=== PATIENT | male | born 1985 | race Caucasian/White ===

== ENCOUNTER 2016-12-12 14:50 | Emergency (ER) | payer BC ==
[2016-12-12 14:58] VITALS: BP 117/83
--- NOTE | 2016-12-12 15:20 | UC ---
Rainer Gaxiola Benjamin, scribed for Everett Moore MD on 12/12/16 at 1510 . Skin Complaint HPI - HPI Summary HPI Summary: 31yo male presents with left 5th toe redness, swelling with mild bleeding. Toe s skin is flaky. Pt has been having symptoms for a few weeks. Also some red rash on the top of left foot. No foot or toe injury. No significant PMHx or FHx. - History of Current Complaint Chief Complaint: UCWounds Time Seen by Provider: 12/12/16 15:05 Stated Complaint: RED AREA ON FOOT Hx Obtained From: Patient Onset/Duration: Gradual Onset - few weeks ago, Lasting Weeks, Still Present Onset Severity: Mild Current Severity: Mild Pain Intensity: 0 Pain Scale Used: 0-10 Numeric Location: Foot (Left) - 5th toe on the left foot Character: Swelling, Redness Aggravating: Nothing Alleviating: Nothing Associated Signs & Symptoms: Positive: Negative - Allergy/Home Medications Allergies/Adverse Reactions: Allergies Allergy/AdvReac Type Severity Reaction Status Date / Time No Known Allergies Allergy Verified 12/12/16 14:58 Home Medications: Home Medications Ibuprofen TAB* [Advil TAB*] 600 mg PO PRN 12/12/16 [History] Review of Systems Constitutional: Negative Skin: Rash - red rash, flaky skin of the 5th toe of the left foot. Eyes: Negative ENT: Negative Respiratory: Negative Cardiovascular: Negative Gastrointestinal: Negative Genitourinary: Negative Motor: Negative Neurovascular: Negative Musculoskeletal: Negative Neurological: Negative Psychological: Negative All Other Systems Reviewed And Are Negative: Yes PMH/Surg Hx/FS Hx/Imm Hx Previously Healthy: Yes - Surgical History Surgical History: None - Family History Known Family History: Positive: None Negative: Cardiac Disease, Hypertension, Diabetes - Social History Occupation: Employed Full-time Lives: With Family Alcohol Use: Occasionally Substance Use Type: None Smoking Status (MU): Former Smoker When Did the Patient Quit Smoking/Using Tobacco: 10 YRS AGO Physical Exam Triage Information Reviewed: Yes Appearance: Well-Appearing, No Pain Distress, Well-Nourished, Obese Vital Signs: Initial Vital Signs Temp 98.1 F 12/12/16 14:55 Pulse 80 12/12/16 14:55 Resp 16 12/12/16 14:55 BP 117/83 12/12/16 14:55 Pulse Ox 100 12/12/16 14:55 Eyes: Positive: Conjunctiva Clear ENT: Positive: Normal ENT inspection Respiratory: Positive: Lungs clear Cardiovascular: Positive: RRR Musculoskeletal: Positive: Strength Intact, ROM Intact Neurological: Positive: Alert, Muscle Tone Normal Skin: Positive: Other - the left little toe has scaly, reddish, lichen appearance to the skin. The nail is wnl. Appearance consistent with tinea pedis. Course/Dx - Course Course Of Treatment: Reviewed pt's medications list. He is going to use over the counter antifungal cream twice a day until a week after the rash is gone on the toe. There is no evidence of cellulitis or secondary infection at this point. Referral to primary care made. - Diagnoses Provider Diagnoses: tinea pedis Discharge - Discharge Plan Condition: Good Disposition: HOME Patient Education Materials: Athlete's Foot (ED) Referrals: [facility] [Outside] No Primary Care Phys,NOPCP [Primary Care Provider] - Additional Instructions: apply antifungal cream or spray twice a day to the area of your foot affected. The documentation as recorded by the Rainer roger Benjamin accurately reflects the service I personally performed and the decisions made by , Everett Moore MD.
== END 2016-12-12 15:20 | disposition home or self-care (01) ==
LOC: UCEAST 14:50
DX: B35.3 Tinea pedis (principal); Z87.891 Personal history of nicotine dependence
CPT/HCPCS: 99211; G0463

== ENCOUNTER 2017-07-17 08:45 | Emergency (ER) | payer BC ==
--- NOTE | 2017-07-17 10:21 | UC ---
Respiratory Complaint HPI - HPI Summary HPI Summary: 1 WEEK OF PRODUCTIVE COUGH, CONGESTION, ST, ACHINESS. HAS SLIGHT SUAREZ AND FEELS SOB AT TIMES. YESTERDAY HAD TEMP 100 SO DECIDED TO COME IN FOR EVAL. - History of Current Complaint Chief Complaint: UCRespiratory Stated Complaint: COUGH, AND CHILLS Time Seen by Provider: 07/17/17 09:54 Hx Obtained From: Patient, Family/[employer] - Onset/Duration: Gradual Onset, Lasting Days, Still Present Timing: Constant Severity Initially: Moderate Severity Currently: Moderate Pain Intensity: 6 Pain Scale Used: 0-10 Numeric Character: Cough: Productive Aggravating Factors: Deep Breaths Alleviating Factors: Nothing Associated Signs And Symptoms: Positive: Dyspnea, Fever, URI, Nasal Congestion - Allergies/Home Medications Allergies/Adverse Reactions: Allergies Allergy/AdvReac Type Severity Reaction Status Date / Time No Known Allergies Allergy Verified 12/12/16 14:58 PMH/Surg Hx/FS Hx/Imm Hx Previously Healthy: Yes - Surgical History Surgical History: None - Family History Known Family History: Positive: None Negative: Cardiac Disease, Hypertension, Diabetes - Social History Alcohol Use: Rare Substance Use Type: None Smoking Status (MU): Former Smoker When Did the Patient Quit Smoking/Using Tobacco: 10 YRS AGO Review of Systems Constitutional: Fever, Fatigue ENT: Sore Throat, Nasal Discharge Respiratory: Shortness Of Breath, Cough Cardiovascular: Negative Gastrointestinal: Negative Musculoskeletal: Myalgia Neurological: Headache All Other Systems Reviewed And Are Negative: Yes Physical Exam Triage Information Reviewed: Yes Appearance: Well-Appearing, No Pain Distress, Well-Nourished Vital Signs: Initial Vital Signs Temp 98.2 F 07/17/17 08:53 Pulse 91 07/17/17 08:53 Resp 18 07/17/17 08:53 BP 126/82 07/17/17 08:53 Pulse Ox 98 07/17/17 08:53 Vital Signs Reviewed: Yes Eyes: Positive: Conjunctiva Clear ENT: Positive: Hearing grossly normal, Pharynx normal, TMs normal Neck: Positive: Supple, Nontender, No Lymphadenopathy Respiratory Exam: Normal Cardiovascular Exam: Normal Abdomen Description: Positive: Soft Musculoskeletal: Positive: No Edema Neurological: Positive: Alert Psychological: Positive: Age Appropriate Behavior Skin: Negative: rashes UC Diagnostic Evaluation - Laboratory O2 Sat by Pulse Oximetry: 98 Diagnostic Studies Comment: INFLUENZA NEG - Radiology Xray Interpretation: No Acute Changes - CXR Radiology Interpretation Completed By: Radiologist Respiratory Course/Dx - Differential Dx/Diagnosis Provider Diagnoses: ACUTE URI Discharge - Discharge Plan Condition: Stable Disposition: HOME Patient Education Materials: Upper Respiratory Infection (ED) Forms: *Work Release Referrals: [facility] [Provider Group] - If Needed Additional Instructions: FLU SWAB NEGATIVE. YOUR SYMPTOMS ARE LIKELY VIRALLY MEDIATED AND SHOULD RESOLVE ON THEIR OWN WITH TIME. REST, HYDRATE, OTC MEDS NEEDED. SEEK FOLLOW-UP IF YOU ARE NOT IMPROVING OVER THE NEXT 1-2 WEEKS.
--- NOTE | 2017-07-17 10:43 | RAD ---
HISTORY: Cough, shortness of breath COMPARISONS: None VIEWS: 4: Frontal dual-energy and lateral views of the chest. FINDINGS: CARDIOMEDIASTINAL SILHOUETTE: The cardiomediastinal silhouette is normal. CLAIRE: The claire are normal. PLEURA: The costophrenic angles are sharp. No pleural abnormalities are noted. LUNG PARENCHYMA: The lungs are clear. ABDOMEN: The upper abdomen is clear. There is no subphrenic gas. BONES AND SOFT TISSUES: No bone or soft tissue abnormalities are noted. OTHER: None. IMPRESSION: NO ACTIVE CARDIOPULMONARY DISEASE.
[2017-07-17 10:52] VITALS: BP 136/80
== END 2017-07-17 10:48 | disposition home or self-care (01) ==
LOC: UCEAST 08:45
DX: J06.9 Acute upper respiratory infection, unspecified (principal); Z87.891 Personal history of nicotine dependence
CPT/HCPCS: 71046; 87502; 99212; G0463

== ENCOUNTER 2017-08-22 12:45 | Emergency (ER) | payer BC ==
--- NOTE | 2017-08-22 13:30 | ED ---
Psychiatric Complaint - HPI Summary HPI Summary: 32-year-old male presents with suicidal thoughts today. He states he would hang himself in the basement. He states the thoughts of an increasing depression. He states today is the first day though he feels he would actually go through with it. He told his was concerned and she feels that he should be left alone. They both feel that he should be admitted. He is not on any medication. He is not seeing anyone for mental health. He denies any drug or alcohol use. He has no medical conditions. He has been missing more and more days of work and not following up with clients at his job. - History Of Current Complaint Chief Complaint: EDMentalHealth Time Seen by Provider: 08/22/17 12:54 - Allergies/Home Medications Allergies/Adverse Reactions: Allergies Allergy/AdvReac Type Severity Reaction Status Date / Time No Known Allergies Allergy Verified 12/12/16 14:58 Home Medications: Home Medications Ibuprofen TAB* [Advil TAB*] 600 mg PO Q8H PRN 08/22/17 [History Confirmed ] PMH/Surg Hx/FS Hx/Imm Hx Endocrine/Hematology History: Denies: Hx Diabetes, Hx Thyroid Disease Cardiovascular History: Denies: Hx Hypertension Respiratory History: Denies: Hx Asthma, Hx Chronic Obstructive Pulmonary Disease (COPD) GI History: Denies: Hx Ulcer Infectious Disease History: No Infectious Disease History: Denies: Hx Hepatitis, Hx Human Immunodeficiency Virus (HIV), Traveled Outside the [place] in Last 30 Days - Family History Known Family History: Positive: None Negative: Cardiac Disease, Hypertension, Diabetes - Social History Alcohol Use: Occasionally Substance Use Type: Reports: None Smoking Status (MU): Former Smoker Review of Systems Negative: Fever Negative: Chest Pain Negative: Shortness Of Breath Positive: Depressed All Other Systems Reviewed And Are Negative: Yes Physical Exam Triage Information Reviewed: Yes Vital Signs On Initial Exam: Initial Vitals Temp Pulse Resp BP Pulse Ox 97.1 F 59 18 128/85 100 08/22/17 12:47 08/22/17 12:47 08/22/17 12:47 08/22/17 12:47 08/22/17 12:47 Vital Signs Reviewed: Yes Appearance: Positive: Well-Appearing Skin: Positive: Warm, Dry Head/Face: Positive: Normal Head/Face Inspection Eyes: Positive: Normal, Conjunctiva Clear Respiratory/Lung Sounds: Positive: Clear to Auscultation, Breath Sounds Present Cardiovascular: Positive: Normal, RRR Abdomen Description: Positive: Nontender, Soft Bowel Sounds: Positive: Present Musculoskeletal: Positive: Normal Neurological: Positive: Normal Psychiatric: Positive: Depressed Diagnostics - Vital Signs Vital Signs Temp Pulse Resp BP Pulse Ox 08/22/17 12:47 97.1 F 59 18 128/85 100 - Laboratory Result Diagrams: 08/22/17 14:54 08/22/17 14:54 Lab Statement: Any lab studies that have been ordered have been reviewed, and results considered in the medical decision making process. Course/Dx - Course Course Of Treatment: 32-year-old male presents with suicidal thoughts today. He states he would hang himself in the basement. He states the thoughts of an increasing depression. He states today is the first day though he feels he would actually go through with it. He told his was concerned and she feels that he should be left alone. They both feel that he should be admitted. He is not on any medication. He is not seeing anyone for mental health. He denies any drug or alcohol use. He has no medical conditions. He has been missing more and more days of work and not following up with clients at his job. normal pe. medically clear for [facility]HE. after mental health exam patient will be transfer due to no available beds. awaiting accepting facility for transfer - Differential Dx/Clinical Impression Differential Diagnosis/HQI/PQRI: Positive: Anxiety, Depression, Suicidal Ideation Provider Diagnosis: Depression Discharge - Sign-Out/Discharge Documenting (check all that apply): Discharge - Discharge Plan Condition: Stable Disposition: PSYCHIATRIC FACILITY-OTHER Referrals: No Primary Care Phys,NOPCP [Medical Doctor] - - Billing Disposition and Condition Condition: STABLE Disposition: PSY-OTH
[2017-08-22 13:31] LABS: Urine Appearance Clear; Urine Blood Negative (Negative); Urine Color Yellow; Urine Ketones Negative (Negative); Urine Protein Negative (Negative); Urine Specific Gravity 1.024 (1.010-1.030); Urine Urobilinogen Negative (Negative)
[2017-08-22 15:08] LABS: ABS Basophils 0.1 10^3/ul (0-0.2); ABS Eosinophils 0.2 10^3/ul (0-0.6); ABS Lymphocytes 2.7 10^3/ul (1.0-4.8); ABS Monocytes 0.9 10^3/ul (0-0.8); ABS Neutrophils 6.8 10^3/ul (1.5-7.7); ABS Nucleated RBC 0 10^3/ul; Eosinophil % 1.6 % (0-6); Hematocrit 45 % (42-52); Hemoglobin 14.8 g/dl (14.0-18.0); Lymphocyte % 25.3 % (25-47); Mean Corpuscular HGB Conc 33 g/dl (31-36); Mean Corpuscular Hemoglobin 28 pg (27-31); Mean Corpuscular Volume 84 fL (80-94); Mean Platelet Volume 8.1 um3 (7.4-10.4); Nucleated Red Blood Cells % 0; Platelet Count 322 10^3/ul (150-450); Red Blood Count 5.33 10^6/ul (4.0-5.4); Red Cell Distribution Width 15 % (10.5-15); White Blood Count 10.6 10^3/ul (3.5-10.8)
[2017-08-22 15:24] LABS: EGFR Non-African American 97.2 (>60)
--- NOTE | 2017-08-23 08:43 | PN ---
ED Flex Patient Progress Note Date of Service: 08/23/17 Subjective: This is a 32 year-old M who is pending transfer to another psychiatric facility. secondary to depression and suicidal ideation. Pt offers no complaints at this time. Objective: Vitals: Most recent vital signs documented below. General NAD, Alert and oriented x3. Heart: rrr at 80 bpm Lungs: CTA or with rales, rhonchi, wheezing Laboratory: Current laboratory results documented below. Assessment: Pending psychiatric transfer Suicidal ideation Plan: Pending psychiatric transfer. will follow up daily. Vital Signs Temp Pulse Resp BP Pulse Ox 98.3 F 88 16 132/66 100 08/22/17 19:21 08/22/17 19:21 08/22/17 17:33 08/22/17 19:21 08/22/17 19:21 Lab Results - Entire Visit 08/22/17 08/22/17 08/22/17 14:54 14:54 13:05 WBC 10.6 RBC 5.33 Hgb 14.8 Hct 45 MCV 84 MCH 28 MCHC 33 RDW 15 Plt Count 322 MPV 8.1 Neut % (Auto) 64.4 Lymph % (Auto) 25.3 Wetzel % (Auto) 8.1 H Eos % (Auto) 1.6 Baso % (Auto) 0.6 Absolute Neuts (auto) 6.8 Absolute Lymphs (auto) 2.7 Absolute Monos (auto) 0.9 H Absolute Eos (auto) 0.2 Absolute Basos (auto) 0.1 Absolute Nucleated RBC 0 Nucleated RBC % 0 Sodium 137 Potassium 4.2 Chloride 105 Carbon Dioxide 24 Anion Gap 8 BUN 12 Creatinine 0.90 Est GFR ( Amer) 125.0 Est GFR (Non-Af Amer) 97.2 BUN/Creatinine Ratio 13.3 Glucose 129 H Calcium 9.6 Total Bilirubin 0.70 AST 32 ALT 65 H Alkaline Phosphatase 76 Total Protein 7.8 Albumin 4.5 Globulin 3.3 Albumin/Globulin Ratio 1.4 TSH 1.44 Urine Color Yellow Urine Appearance Clear Urine pH 7.0 Ur Specific [place] 1.024 Urine Protein Negative Urine Ketones Negative Urine Blood Negative Urine Nitrate Negative Urine Bilirubin Negative Urine Urobilinogen Negative Ur Leukocyte Esterase Negative Urine Glucose Negative Salicylates < 2.50 Urine Opiates Screen Acetaminophen < 15 Ur Barbiturates Screen Ur Phencyclidine Scrn Ur Amphetamines Screen U Benzodiazepines Scrn Urine Cocaine Screen U Cannabinoids Screen Serum Alcohol < 10 08/22/17 13:05 WBC RBC Hgb Hct MCV MCH MCHC RDW Plt Count MPV Neut % (Auto) Lymph % (Auto) Wetzel % (Auto) Eos % (Auto) Baso % (Auto) Absolute Neuts (auto) Absolute Lymphs (auto) Absolute Monos (auto) Absolute Eos (auto) Absolute Basos (auto) Absolute Nucleated RBC Nucleated RBC % Sodium Potassium Chloride Carbon Dioxide Anion Gap BUN Creatinine Est GFR ( Amer) Est GFR (Non-Af Amer) BUN/Creatinine Ratio Glucose Calcium Total Bilirubin AST ALT Alkaline Phosphatase Total Protein Albumin Globulin Albumin/Globulin Ratio TSH Urine Color Urine Appearance Urine pH Ur Specific [place] Urine Protein Urine Ketones Urine Blood Urine Nitrate Urine Bilirubin Urine Urobilinogen Ur Leukocyte Esterase Urine Glucose Salicylates Urine Opiates Screen None detected Acetaminophen Ur Barbiturates Screen None detected Ur Phencyclidine Scrn None detected Ur Amphetamines Screen None detected U Benzodiazepines Scrn None detected Urine Cocaine Screen None detected U Cannabinoids Screen None detected Serum Alcohol
--- NOTE | 2017-08-23 08:57 | UC ---
- Progress Note Progress Note: Pt had EKG for mental health clearance NSR, [address], T wave changes ljj - Consult/PCP Time Called: 15:00 Course/Dx - Diagnoses Provider Diagnoses: Depression Discharge - Sign-Out/Discharge Documenting (check all that apply): Receiving Sign-Out Receiving patient FROM: Andry Shrestha - Discharge Plan Condition: Stable Disposition: PSYCHIATRIC FACILITY-OTHER Referrals: No Primary Care Phys,NOPCP [Medical Doctor] - - Billing Disposition and Condition Condition: STABLE Disposition: PSY-OTH
--- NOTE | 2017-08-23 12:27 | PN ---
ED Flex Patient Progress Note Date of Service: 08/23/17 Subjective: ED Day number 1 for this 32 y.o. male with no prior MH history who arrived complaining of depression and suicidal ideations. Apparently he has not been attending work for several weeks due to amotivation. Patient unable to contract for safety. Objective: young male, depressed and suicidal Assessment: Depression and suicidality Plan: The patient requires psychiatric admission but we have no beds. Will transfer to appropriate [facility] receiving facility. Vital Signs Temp Pulse Resp BP Pulse Ox 98.3 F 88 16 132/66 100 08/22/17 19:21 08/22/17 19:21 08/22/17 17:33 08/22/17 19:21 08/22/17 19:21 Lab Results - Entire Visit 08/22/17 08/22/17 08/22/17 14:54 14:54 13:05 WBC 10.6 RBC 5.33 Hgb 14.8 Hct 45 MCV 84 MCH 28 MCHC 33 RDW 15 Plt Count 322 MPV 8.1 Neut % (Auto) 64.4 Lymph % (Auto) 25.3 Hale % (Auto) 8.1 H Eos % (Auto) 1.6 Baso % (Auto) 0.6 Absolute Neuts (auto) 6.8 Absolute Lymphs (auto) 2.7 Absolute Monos (auto) 0.9 H Absolute Eos (auto) 0.2 Absolute Basos (auto) 0.1 Absolute Nucleated RBC 0 Nucleated RBC % 0 Sodium 137 Potassium 4.2 Chloride 105 Carbon Dioxide 24 Anion Gap 8 BUN 12 Creatinine 0.90 Est GFR ( Amer) 125.0 Est GFR (Non-Af Amer) 97.2 BUN/Creatinine Ratio 13.3 Glucose 129 H Calcium 9.6 Total Bilirubin 0.70 AST 32 ALT 65 H Alkaline Phosphatase 76 Total Protein 7.8 Albumin 4.5 Globulin 3.3 Albumin/Globulin Ratio 1.4 TSH 1.44 Urine Color Yellow Urine Appearance Clear Urine pH 7.0 Ur Specific [place] 1.024 Urine Protein Negative Urine Ketones Negative Urine Blood Negative Urine Nitrate Negative Urine Bilirubin Negative Urine Urobilinogen Negative Ur Leukocyte Esterase Negative Urine Glucose Negative Salicylates < 2.50 Urine Opiates Screen Acetaminophen < 15 Ur Barbiturates Screen Ur Phencyclidine Scrn Ur Amphetamines Screen U Benzodiazepines Scrn Urine Cocaine Screen U Cannabinoids Screen Serum Alcohol < 10 08/22/17 13:05 WBC RBC Hgb Hct MCV MCH MCHC RDW Plt Count MPV Neut % (Auto) Lymph % (Auto) Hale % (Auto) Eos % (Auto) Baso % (Auto) Absolute Neuts (auto) Absolute Lymphs (auto) Absolute Monos (auto) Absolute Eos (auto) Absolute Basos (auto) Absolute Nucleated RBC Nucleated RBC % Sodium Potassium Chloride Carbon Dioxide Anion Gap BUN Creatinine Est GFR ( Amer) Est GFR (Non-Af Amer) BUN/Creatinine Ratio Glucose Calcium Total Bilirubin AST ALT Alkaline Phosphatase Total Protein Albumin Globulin Albumin/Globulin Ratio TSH Urine Color Urine Appearance Urine pH Ur Specific [place] Urine Protein Urine Ketones Urine Blood Urine Nitrate Urine Bilirubin Urine Urobilinogen Ur Leukocyte Esterase Urine Glucose Salicylates Urine Opiates Screen None detected Acetaminophen Ur Barbiturates Screen None detected Ur Phencyclidine Scrn None detected Ur Amphetamines Screen None detected U Benzodiazepines Scrn None detected Urine Cocaine Screen None detected U Cannabinoids Screen None detected Serum Alcohol
--- NOTE | 2017-08-23 14:51 | ED ---
Progress - Progress Note Progress Note: Spoke with Dr. Mckee - psychiatrist at [facility] - accepting pt in transfer paperwork completed with mental health provider radha 08/23/2017 1451 - Consult/PCP Time Called: 15:00 Course/Dx - Course Course Of Treatment: 32-year-old male presents with suicidal thoughts today. He states he would hang himself in the basement. He states the thoughts of an increasing depression. He states today is the first day though he feels he would actually go through with it. He told his was concerned and she feels that he should be left alone. They both feel that he should be admitted. He is not on any medication. He is not seeing anyone for mental health. He denies any drug or alcohol use. He has no medical conditions. He has been missing more and more days of work and not following up with clients at his job. normal pe. medically clear for [facility]HE. after mental health exam patient will be transfer due to no available beds. awaiting accepting facility for transfer - Diagnoses Provider Diagnoses: Depression Discharge - Sign-Out/Discharge Documenting (check all that apply): Discharge - Discharge Plan Condition: Stable Disposition: PSYCHIATRIC FACILITY-OTHER Referrals: No Primary Care Phys,NOPCP [Medical Doctor] - - Billing Disposition and Condition Condition: STABLE Disposition: PSY-OTH
[2017-08-23 16:45] VITALS: BP 124/92
== END 2017-08-23 17:18 ==
LOC: ED 12:45
DX: F32.9 Major depressive disorder, single episode, unspecified (principal); R45.851 Suicidal ideations; Z87.891 Personal history of nicotine dependence
CPT/HCPCS: 36415; 80053; 80307; 80320; 80329; 81003; 84443; 85025; 93005; 99284; G0480